=== PATIENT | male | born 1940 | race Caucasian/White ===

== ENCOUNTER → 2019-07-25 12:12 | Outpatient (CLI) | payer MEDICARE, SELFPAY ==
--- NOTE | ~2019-07-25 | CT_ITS ---
EXAMINATION: CT sinus wo con DATE: 07/25/2019 12:25 INDICATION: Headache TECHNIQUE: Computed tomography (CT) of the paranasal sinuses was performed without contrast. Iterativ e reconstruction technique was employed. Exam dose: 272.93 mGy-cm total exam DLP. COMPARISON: None FINDINGS: There is mild rightward bowing of the nasal septum. The nasal turbinates are moderately pro minent in size. There is intralamellar cell of both middle nasal turbinates, greater on the left. The ostiomeatal units are patent bilaterally. There is an approximately 6.4 x 10.7 mm mucous retention cyst or polyp along the lower anteromedial w all of the right maxillary sinus. The paranasal sinuses otherwise are normally developed and aerated. The mastoid air cells are normally developed and aerated bilaterally. Inner and middle ear apparatus appear normal bilaterally. IMPRESSION: Bilateral intralamellar cell of middle nasal turbinates Right maxillary sinus mucous retention cyst or polyp Reviewed, dictated and finalized at [facility]. Reviewed, dictated and finalized at [facility].
== END ==
PROVIDERS: PCP Family Medicine; Visit Provider Otolaryngology
DX: R51 Headache (principal); R93.0 Abnormal findings on diagnostic imaging of skull and head, not elsewhere classified
CPT/HCPCS: 70486